=== PATIENT | female | born 1980 | race Caucasian/White ===

== ENCOUNTER 2019-04-30 19:12 | Emergency (ER) | payer OTHER ==
[~2019-04-30] VITALS: Ht 160 cm; Wt 66.8 kg
[~2019-04-30 19:12] MED LIST: HYDR-4011 PO; no meds.
[2019-04-30 19:37] VITALS: Ht 160 cm; Wt 66.8 kg
[2019-04-30] MEDS ORDERED: ONDANSETRON 4 MG INJ IV STA (20:09)
[2019-04-30] MEDS ORDERED: SOD CHLORIDE 0.9% 1,000 ML IV STA (20:09)
[2019-04-30] MEDS ORDERED: morphine 4 MG/ML VIAL IV STA (20:09)
[2019-04-30] MEDS ORDERED: IOHEXOL 300MG/ML 150 ML BTL ONE (21:15)
[2019-04-30] MEDS ORDERED: SOD CHLORIDE 0.9% 100 ML ONE (21:15)
[2019-04-30] MEDS ORDERED: BELLADONNA/PHENOBARBITAL TAB PO STA (22:11)
[2019-04-30] MEDS ORDERED: LIDOCAINE/MYLANTA 40 ML BTL PO STA (22:11)
[2019-04-30] MEDS ORDERED: FAMOTIDINE 20 MG INJ IV STA (22:11)
[2019-04-30 22:35] VITALS: BP 121/73; PULSE 72; RESP 16
--- NOTE | 2019-04-30 23:24 | ERD ---
ER Documentation Chief Complaint Chief Complaint C/O GENERALIZED AP AND DISTENTION W/ NAUSEA X3 WEEKS, HX GASTRITIS HPI This is a 39-year-old female that has a history of gastritis currently on ranitidine and Protonix. She indicates for the past 3 weeks she has had abdominal distention and epigastric discomfort. She denies any hemoptysis hematemesis or melanotic stools. She said no fevers or shaking no chills. She denies any flank pain. She denies any weight loss. She indicates that her pain is exacerbated after eating. She has not undergone an upper endoscopy. She denies any chest pain or pressure that radiates to the neck arm back or jaw. Her symptoms have worsened over the past 48 hours which prompted her to come to the emergency department to be further evaluated. ROS All systems reviewed and are negative except as per history of present illness. Medications Home Meds Active Scripts Hydrocodone/Acetaminophen (Myrtle 5-325 Tablet) 1 Each Tablet, 1 TAB PO Q6H PRN for PAIN, #20 TAB Prov:LAURA LYNN MD 04/30/19 Reported Medications [no meds.] No Conflict Check 08/25/16 Allergies Allergies: Coded Allergies: No Known Drug Allergies (Verified Allergy, Unknown, 08/25/16) PMhx/Soc History of Surgery: Yes (tubal ligation, cholecystectomy) Anesthesia Reaction: Yes (vomitting) Hx Neurological Disorder: No Hx Respiratory Disorders: No Hx Cardiac Disorders: No Hx Psychiatric Problems: Yes (mild anxiety) Hx Miscellaneous Medical Probl: Yes (GASTRITIS) Hx Alcohol Use: No Hx Substance Use: No Hx Tobacco Use: No Smoking Status: Never smoker Physical Exam Vitals Vital Signs Date Temp Pulse Resp B/P (MAP) Pulse Ox O2 O2 Flow FiO2 Time Delivery Rate 04/30/19 72 16 121/73 100 Room Air 22:35 (89) 04/30/19 97.3 85 19 150/90 99 19:37 (110) Physical Exam Constitutional:Well-developed. Well-nourished. HEENT:Normocephalic. Atraumatic.Pupils were equal round reactive to light. Moist mucous membranes.No tonsillar exudates. Neck: No nuchal rigidity. No lymphadenopathy. No posterior cervical spine tenderness or step-offs. Respiratory: Not using accessory muscles of respiration.Lungs were clear to auscultation bilaterally. No rhonchi. No rales. No wheezing. Cardiovascular: Regular rate regular rhythm.No murmurs. No rubs were appreciated.S1, S2 normal. Distal pulses are palpable 2+ bilaterally. GI: Abdomen was soft. Epigastric tenderness and tenderness in the left lower quadrant. Non Distended. No pulsatile abdominal masses or bruits. No rebound. No guarding. Bowel sounds were present and normal. Muscle skeletal: Full range of motion of both the upper and lower extremities bilaterally.Normal muscle tone.No assymetrical calf tenderness or swelling. Skin: No petechia, no purpura. No lesions on the palms or the soles of the feet. No maculopapular rash. NEURO: Patient was alert, awake, orientated x3.No facial droop. Gait observed and normal with no ataxia.Speech had regular rate and rhythm. No focal neurological deficits. Result Diagram: 04/30/19202204/30/192022 Results 24 hrs Laboratory Tests Test 04/30/19 20:15 04/30/19 20:23 Urine Color STRAW Urine Clarity CLEAR Urine pH 7.0 Urine Specific [place] 1.004 Urine Ketones NEGATIVE mg/dL Urine Nitrite NEGATIVE mg/dL Urine Bilirubin NEGATIVE mg/dL Urine Urobilinogen NEGATIVE mg/dL Urine Leukocyte Esterase NEGATIVE Carlos/ul Urine Hemoglobin NEGATIVE mg/dL Urine Glucose NEGATIVE mg/dL Urine Total Protein NEGATIVE mg/dl Urine Test NEGATIVE White Blood Count 8.5 10^3/ul Red Blood Count 4.41 10^6/ul Hemoglobin 12.5 g/dl Hematocrit 37.5 % Mean Corpuscular Volume 85.0 fl Mean Corpuscular Hemoglobin 28.3 pg Mean Corpuscular Hemoglobin Concent 33.3 g/dl Red Cell Distribution Width 14.5 % Platelet Count 172 10^3/UL Mean Platelet Volume 12.7 fl Immature Granulocytes % 0.400 % Neutrophils % 62.4 % Lymphocytes % 27.3 % Monocytes % 7.8 % Eosinophils % 1.5 % Basophils % 0.6 % Nucleated Red Blood Cells % 0.0 /100WBC Immature Granulocytes # 0.030 10^3/ul Neutrophils # 5.3 10^3/ul Lymphocytes # 2.3 10^3/ul Monocytes # 0.7 10^3/ul Eosinophils # 0.1 10^3/ul Basophils # 0.1 10^3/ul Nucleated Red Blood Cells # 0.0 10^3/ul Prothrombin Time 13.1 Sec Prothrombin Time Ratio 1.0 INR International Normalized Ratio 0.98 Activated Partial Thromboplast Time 26.4 Sec Sodium Level 140 mmol/L Potassium Level 3.6 mmol/L Chloride Level 101 mmol/L Carbon Dioxide Level 30 mmol/L Anion Gap 9 Blood Urea Nitrogen 10 mg/dl Creatinine 0.55 mg/dl Est Glomerular Filtrat Rate mL/min > 60 mL/min Glucose Level 96 mg/dl Calcium Level 9.3 mg/dl Total Bilirubin 1.1 mg/dl Direct Bilirubin 0.00 mg/dl Indirect Bilirubin 1.1 mg/dl Aspartate Amino Transf (AST/SGOT) 26 IU/L Alanine Aminotransferase (ALT/SGPT) 25 IU/L Alkaline Phosphatase 84 IU/L Troponin I < 0.012 ng/ml Total Protein 7.9 g/dl Albumin 4.5 g/dl Globulin 3.40 g/dl Albumin/Globulin Ratio 1.32 Amylase Level 54 U/L Lipase 71 U/L Current Medications Medications Dose Sig/Marcia Start Time Status Last (Trade) Ordered Route PRN Stop Time Admin Dose Reason Admin Sodium 1,000 ml @ Q1H STAT 04/30/19 DC 04/30/19 Chloride 1,000 mls/hr IV 20:09 04/30/19 20:21 21:08 Morphine 4 mg ONCE STAT 04/30/19 DC 04/30/19 Sulfate IV 20:09 04/30/19 20:21 (morphine) 20:10 Ondansetron 4 mg ONCE STAT 04/30/19 DC 04/30/19 HCl (Zofran IV 20:09 04/30/19 20:21 Inj) 20:10 IV Flush 10 ml STK-MED 04/30/19 DC (NS 10 ml) ONCE .ROUTE 21:15 04/30/19 21:16 Sodium 100 ml @ ud STK-MED 04/30/19 DC Chloride ONCE .ROUTE 21:15 04/30/19 21:16 Iohexol 150 ml STK-MED 04/30/19 DC (Omnipaque ONCE .ROUTE 21:15 04/30/19 300mg/ ml) 21:16 Famotidine 20 mg ONCE STAT 04/30/19 DC 04/30/19 (Pepcid Iv) IV 22:11 8/6/19 22:22 22:17 40 ml ONCE STAT 04/30/19 DC 04/30/19 Miscellaneous PO 22:11 04/30/19 22:22 Medication 22:17 (Gi Cocktail (2)) Belladonna/ 2 tab ONCE STAT 04/30/19 DC 04/30/19 Phenobarbital PO 22:11 04/30/19 22:22 () 22:17 Procedures/MDM This patient presented to the emergency department with abdominal pain and was seen and evaluated by myself. My differential diagnosis included but was not limited to abdominal aortic aneurysm, appendicitis, pancreatitis, perforated peptic ulcer, perforated viscus, Boerhaave's syndrome or visceral pain such as diverticulitis, DKA, esophagitis, hepatitis or bowel obstruction. The patient was placed on a cardiac exercise physiologist, continuous pulse oximetry, and IV access was established by nursing staff. The patient was given intravenous morphine and Zofran for analgesia control. I obtained a 12-lead EKG tracing to rule out for atypical myocardial fraction. 12 Lead EKG tracing ordered and reviewed by myself showed: Normal sinus rhythm of 68 bpm and no arrhythmia. DE interval normal. QRS duration normal. No ST segment elevation No ST segment depression. No changes consistent with acute ischemia. Patient no severe electrolyte abnormalities. There is no evidence of pancreatitis or diverticulitis. I obtained a CT scan of the abdomen which showed no evidence of obstructive uropathy or diverticulitis or perforation. Indicated the patient did not have an exact etiology into her symptoms. I do feel however that she would benefit from following up with a GI specialist in order to undergo an outpatient upper endoscopy. Observation Note: Time: 4 hours Family Hx: No Hypertension Evaluation: Multiple exams showed improving symptoms and no evidence of worsening of her symptoms. She also received a GI cocktail which did improve her pain. The patient was discharged home in fair condition. They were instructed to return to the emergency department at any time if there was any worsening of their condition. The patient stated they would follow up with their PCP in the next 24-48 hours to initiate a suitable medication regimen under the care of their PCP as well as to allow their PCP to monitor any drug reactions. The patient was discharged home with prescriptions after they gave informed consent to the new medication. They were also fully informed by myself on the adverse effects and adverse drug interactions in order to provide adequate safeguards to prevent possible adverse reactions to medications. Departure Diagnosis: Primary Impression: Epigastric pain Condition: Fair Patient Instructions: Gastritis Vs. Ulcer LAURA LYNN MD Apr 30, 2019 23:24
== END 2019-04-30 23:26 | disposition home or self-care (01) ==
LOC: E/R 19:12
DX: R10.13 Epigastric pain (principal)
CPT/HCPCS: 74177; 80053; 81003; 82150; 83690; 84484; 84703; 85025; 85610; 85730; 87086; 93005; 96374; 96375; J2270; J2405; J7030; Q9967; Z7502; Z7610